=== PATIENT | male | born 1990 | race African-American/Black ===

== ENCOUNTER 2019-10-18 19:14 | Emergency (ER) | payer MEDICAID ==
[~2019-10-18] VITALS: Ht 188 cm; Wt 115.7 kg
--- NOTE | 2019-10-18 19:21 | NUR ---
ED Nurse Note: Pt walked in to ED for c/o toothache to right upper molar area x 1 week. denies recent dental work.
[2019-10-18 19:22] VITALS: BP 120/86
--- NOTE | 2019-10-18 19:54 | Emergency Room Report ---
History of Present Illness General Chief Complaint: Headache Source: Patient Present Illness HPI 29 YO male presents to the ED C/O 07/22 in severity right sided SALGADO with accompanying Tooth ache. Pt. reports intermittently feeling "whoozy" and has had some ringing in his ears. He denies hx of SALGADO's. He denies sudden onset of his pain. He denies fevers, chills, ST, Visual changes, weakness or paresthesias. PT. denies pain with swallowing. He denies ear pain. HE reports his SALGADO comes and goes, and does not occur at the same time every day. Denies associated lacrimation or rhinorrhea. He denies neck pain or neck stiffness. He denies recent head injury/trauma. Denies AMS, or LOC. He denies recent dental procedures. Allergies: Coded Allergies: No Known Allergies (Unverified , 10/18/19) Patient History Past Medical History: see triage record Past Surgical History: none Pertinent Family History: none Reviewed Nursing Documentation: PMH: Agreed; PSxH: Agreed Nursing Documentation-PMH Past Medical History: No Stated History Review of Systems All Other Systems: negative except mentioned in HPI Physical Exam Vital Signs Date Time Temp Pulse Resp B/P (MAP) Pulse Ox O2 Delivery O2 Flow Rate FiO2 10/18/19 19:16 97.9 86 16 124/84 (97) 95 Room Air Sp02 EP Interpretation: reviewed, normal General Appearance: no apparent distress, alert, GCS 15, non-toxic Head: normocephalic, atraumatic Eyes: bilateral eye normal inspection, bilateral eye PERRL, bilateral eye EOMI , bilateral eye other - No photophobia or nystagmus ENT: hearing grossly normal, normal voice, TMs + canals normal, uvula midline, other - tenderness to percussion of the top right molar (tooth no. 2). Poor dentition with visible carries. There is no surrounding gum swelling or fluctuance. Mild erythema. Neck: full range of motion, no meningismus, no bony tend Respiratory: chest non-tender, lungs clear, normal breath sounds, speaking full sentences Cardiovascular #1: regular rate, rhythm Musculoskeletal: normal range of motion, gait/station normal, non-tender Neurologic: alert, motor strength/tone normal, distal neuro normal, oriented x3 , sensory intact, responsive, speech normal, grossly normal, no focal defects, other - no nystagmus Psychiatric: judgement/insight normal Skin: no rash Lymphatic: no adenopathy Medical Decision Making PA Attestation Dr. Linares Is my supervising Physician whom patient management has been discussed with. Diagnostic Impression: Primary Impression: Infected dental caries Additional Impression: Head ache Qualified Codes: R51 - Headache ER Course 29 YO male presents to the ED C/O 07/22 in severity right sided SALGADO with accompanying Tooth ache. Pt. reports intermittently feeling "whoozy" and has had some ringing in his ears. He denies hx of SALGADO's. He denies sudden onset of his pain. He denies fevers, chills, ST, Visual changes, weakness or paresthesias. PT. denies pain with swallowing. He denies ear pain. HE reports his SALGADO comes and goes, and does not occur at the same time every day. Denies associated lacrimation or rhinorrhea. He denies neck pain or neck stiffness. He denies recent head injury/trauma. Denies AMS, or LOC. He denies recent dental procedures. Ddx considered but are not limited to cellulitis, dental abscess, orbital cellulitis, d/l tooth, dental pain. trigeminal neuralgia, GCA, Migraine, tumor just to name a few. Vital signs: are WNL, pt. is afebrile H&PE are most consistent with dental infection of the back top right molar ( tooth no. 2). Poor dentition with visible carries. -The patient is nontoxic in appearance and does not demonstrate any focal neurological deficits. ORDERS: none required at this time, the diagnosis is clinical ED INTERVENTIONS: None required at this time. DISCHARGE: At this time pt. is stable for d/c to home. Will provide printed patient care instructions, and any necessary prescriptions. Care plan and follow up instructions have been discussed with the patient prior to discharge. Last Vital Signs Date Time Temp Pulse Resp B/P (MAP) Pulse Ox O2 Delivery O2 Flow Rate FiO2 10/18/19 19:22 97.9 90 16 120/86 97 Room Air Disposition: HOME, SELF-CARE Condition: Stable Scripts Amoxicillin/Potassium Clav 875-125 Mg Tab* (AMOX TR-K CLV 875-125 MG TAB*) 1 Each Tablet 1 TAB ORAL EVERY 12 HOURS for 7 Days, #14 TAB Prov: Vanessa Bolaños 10/18/19 Acetaminophen With Codeine (T#3) (TYLENOL #3 TAB*) Y Tab 1 TAB ORAL Q6H PRN for For Pain, #6 TAB Prov: Vanessa Bolaoñs 10/18/19 Patient Instructions: Dental Caries, [id number], General Headache Without Cause Additional Instructions: Take medications as directed. Follow up with a Dentist in 3-5 days, even if your symptoms have resolved. * * If you continue to experience Headaches an evaluation by a Neurologist is also recommended. --Please review list of Dental clinics, if you do not already have a Dentist Return sooner to ED if new symptoms occur, or current symptoms become worse. Do not drink alcohol, drive, or operate heavy machinery while taking Tylenol # 3 as this may cause drowsiness. - Please note that this Emergency Department Report was dictated using [employer] technology software, occasionally this can lead to erroneous entry secondary to interpretation by the dictation equipment. Vanessa Bolaños Oct 18, 2019 19:54
[2019-10-18] MEDS ORDERED: ACETAMINOPHEN-1 EAC1 ORAL (19:55)
[2019-10-18] MEDS ORDERED: AMOX TR-K CLV1 EAC2 ORAL (19:55)
[2019-10-18 20:07] VITALS: BP 128/90
--- NOTE | 2019-10-18 20:07 | NUR ---
ER DISCHARGE NOTE: Patient is cleared to be discharged per ERMD, pt is aox4, on room air, with stable vital signs. pt was given dc and prescription instructions, pt was able to verbalize understanding, pt id band removed without complications. pt is able to ambulate with steady gait. pt took all belongings.
== END 2019-10-18 20:07 | disposition home or self-care (01) ==
LOC: EMR 19:59
DX: K08.89 Other specified disorders of teeth and supporting structures (principal); R51 Headache
CPT/HCPCS: 99282